=== PATIENT | female | born 1990 | race Two or more races ===

== ENCOUNTER 2024-08-03 11:19 | Emergency (ER) | payer BC, OTHER ==
[~2024-08-03] VITALS: Ht 157.5 cm; Wt 59.5 kg
[2024-08-03 11:48] LABS: Urine Bacteria None Seen /hpf (None Seen)
[2024-08-03 12:09] LABS: Urine Blood 2+ /uL (Negative); Urine Clarity Clear (Clear); Urine Color Yellow (Yellow); Urine Mucus FEW (None Seen); Urine Protein, UAD Negative (Negative); Urine Specific Gravity 1.026 (1.001-1.035); Urine Squamous Epithelial Cell FEW /hpf (<5); Urine Urobilinogen Normal (Negative); Urine WBC 4 /HPF (0-5); Urine pH 5.5 (5.0-9.0)
--- NOTE | 2024-08-03 12:09 | ED.PDOC ---
History of Present Illness HPI Comments 33 y/o F, with a Hx of UTI's, , laparoscopy, and polysubstance use, presents with significant other for c/o pelvic and LLQ and RUQ abdominal pain, today. Patient endorses on having symptoms for the past 4 days following initial, unprovoked and gradual onset. She reports recent UTI history 1x week ag o and finishing antibiotic course but still endorses on having urine frequency, currently, as well. Patient admits to no recent sick contact, travel, spoiled food intake, or injuries in addition to tobacco cigarette, occasional alcohol, and marijuana use. She refutes being , currently. Patient denies any nausea, vomiting, diarrhea, constipation, dysuria, hematuria, fever, chills, or other associated symptoms or modifiers at this time. Chief Complaint: Abdominal Pain Time Seen by MD: 11:40 Primary Care Provider: QUENTIN Reviewed Notes: Nurses Notes, Medications, Allergies Allergies: Coded Allergies: NO KNOWN ALLERGIES (Unverified , 08/03/24) Home Meds Active Scripts Hydrocodone-Acetaminophen (Hydrocodone Bitartrate/AC 5-325 mg) 1 Tab Tab, 1 TAB PO Q8HP PRN for 7 Days, #21 TAB Prov:KAYLAN HIGUERA MD 08/03/24 Information Source: Patient, Significant Other Mode of Arrival: Ambulatory Severity: Moderate Timing: Days Duration: Since onset Prehospital treatment: None Past Medical History PAST MEDICAL HISTORY: UTI'S Surgical History: Surgical History (Other): laparoscopy 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 Family History Family History: Unknown Social History Smoker: Cigarettes Alcohol: Occasionally Drugs: Marijuana Lives In: Home Physical Exam General Appearance: Moderate Distress HEENT: Normal ENT Inspection, Pharynx Normal, TMs Normal Neck: Full Range of Motion, Non-Tender, Normal, Normal Inspection Respiratory: Chest Non-Tender, Lungs Clear, No Accessory Muscle Use, No Respiratory Distress, Normal Breath Sounds Cardiovascular: No Edema, No JVD, No Murmur, No Gallop, Normal Peripheral Pulses, Regular Rate/Rhythm Breast Exam: Deferred Gastrointestinal: No Organomegaly, No Pulsatile Mass, Normal Bowel Sounds, Soft, Suprapubic, Tenderness Genitalia: Deferred Pelvic: Deferred Rectal: Deferred Extremities: No calf tenderness, Normal capillary refill, Normal inspection, Normal range of motion, Non-tender, No pedal edema Musculoskeletal : Apperance: Normal Neurologic: Alert, digital imaging specialist II-XII nml as Tested, No Motor Deficits, Normal Affect, Normal Mood, No Sensory Deficits Cerebellar Function: Normal Reflexes: Normal Skin: Dry, Normal Color, Warm Lymphatic: No Adenopathy Was a procedure done? Was a procedure done?: No Differential Dx Considerations may include: UTI, PID, diverticulitis, appendicitis, nephrolithiasis, , endometriosis, ovarian cysts, ovarian torsion, cannabinoid hyperemesis syndrome, among others X-Ray, Labs, Meds, VS Vital Signs Date Time Temp Pulse Resp B/P (MAP) Pulse Ox O2 Delivery O2 Flow Rate FiO2 08/03/24 15:00 66 19 163/66 08/03/24 11:32 98.4 82 16 120/78 (92) 95 98.4 Lab Test 08/03/24 12:07 08/03/24 11:37 Range/Units White Blood Count 6.7 4.4-10.8 10^3/uL Red Blood Count 4.51 4.0-5.20 10^6/uL Hemoglobin 13.3 12.2-16.2 g/dL Hematocrit 39.9 36.0-46.0 % Mean Corpuscular Volume 88.5 80.0-100.0 fL Mean Corpuscular Hemoglobin 29.4 28.0-32.0 pg Mean Corpuscular Hemoglobin Concent 33.2 32.0-36.0 g/dL Red Cell Distribution Width 14.3 11.8-14.3 % Platelet Count 250 140-450 10^3/uL Mean Platelet Volume 8.1 6.9-10.8 fL Neutrophils (%) (Auto) 64.0 37.0-80.0 % Lymphocytes (%) (Auto) 25.7 10.0-50.0 % Monocytes (%) (Auto) 9.4 0.0-12.0 % Eosinophils (%) (Auto) 0.4 0.0-7.0 % Basophils (%) (Auto) 0.5 0.0-2.0 % Neutrophils # (Auto) 4.3 1.6-8.6 10 ^3/uL Lymphocytes # (Auto) 1.7 0.4-5.4 10 ^3/uL Monocytes # (Auto) 0.6 0-1.3 10 ^3/uL Eosinophils # (Auto) 0 0-0.8 10 ^3/uL Basophils # (Auto) 0 0-0.2 10 ^3/uL Nucleated Red Blood Cells 0.0 % Sodium Level 139 136-145 mmol/L Potassium Level 4.3 3.5-5.1 mmol/L Chloride Level 107 98-107 mmol/L Carbon Dioxide Level 25 20-31 mmol/L Anion Gap 7 5-15 Blood Urea Nitrogen 18 9-23 mg/dL Creatinine 0.83 0.550-1.02 mg/dL Glomerular Filtration Rate Calc 95 >90 mL/min BUN/Creatinine Ratio 21.7 H 10.0-20.0 Serum Glucose 86 74-106 mg/dL Calcium Level 10.1 8.7-10.4 mg/dL Total Bilirubin 0.8 0.2-1.0 mg/dL Aspartate Amino Transferase (AST) 8 L 13-40 U/L Alanine Aminotransferase (ALT) 13 7-40 U/L Alkaline Phosphatase 62 46-116 U/L Total Protein 7.9 5.7-8.2 g/dL Albumin 5.3 H 3.2-4.8 g/dL Urine Color Yellow Yellow Urine Clarity Clear Clear Urine pH 5.5 5.0-9.0 Urine Specific [place] 1.026 1.001-1.035 Urine Protein Negative Negative Urine Ketones Negative Negative Urine Blood 2+ H Negative /uL Urine Nitrite Negative Negative Urine Bilirubin Negative Negative Urine Urobilinogen Normal Negative mg/dL Urine Leukocyte Esterase Negative Negative /uL Urine RBC 14 0 - 4 /hpf Urine Microscopic WBC 4 0-5 /HPF Urine Squamous Epithelial Cells Few <5 /hpf Urine Bacteria None seen None Seen /hpf Urine Mucus Few None Seen Urine Glucose Normal Normal mg/dL Urine Test Negative Negative Current Medications Medications (Trade) Dose Ordered Sig/Abraham Route Start Time Stop Time Status Last Admin Ondansetron HCl (Zofran) 4 mg ONCE ONCE IV 08/03/24 11:45 08/03/24 11:46 DC 08/03/24 15:00 Morphine Sulfate 4 mg ONCE ONCE IV 08/03/24 11:45 08/03/24 11:46 DC 08/03/24 15:00 Sodium Chloride 500 ml @ 500 mls/hr Q1H ONCE IVB 08/03/24 11:45 08/03/24 12:44 DC 08/03/24 15:00 Ultrasound of the pelvis shows: Impression: Cluster of cystic nonvascular structure within the body of the uterus which may represent myometrial cysts with other etiologies not excluded. 1.8 cm left ovarian cyst with echogenic wall and peripheral vascularity which may represent a corpus luteal cyst. Recommend correlation with beta HCG to exclude an ectopic . The patient was given morphine 4 mg IV push for the pain The patient was given Zofran 4 mg IV push for the nausea The patient was bolused with normal saline at 500 cc The urine test is negative for any infection The patient's CBC is within normal limits At this time the patient was being discharged on [place] The patient was told about her ultrasound and given a copy for ultrasound The patient understands and agrees with the management. Images Reviewed?: Images reviewed and evaluated by me Time of 1ST Reevaluation: 12:10 Reevaluation 1ST: Unchanged Patient Education/Counseling: Diagnosis, Treatment, Prognosis, Need For Follow Up Family Education/Counseling: Diagnosis, Treatment, Prognosis, Need For Follow Up Departure 1 Departure Time of Disposition: 15:57 Impression: Primary Impression: Pelvic pain Disposition: 01 HOME / SELF CARE / HOMELESS Condition: Fair e-Prescriptions Hydrocodone-Acetaminophen (Hydrocodone Bitartrate/AC 5-325 mg) 1 Tab Tab 1 TAB PO Q8HP PRN for 7 Days, #21 TAB Prov: KAYLAN HIGUERA MD 08/03/24 Discharged With: Self Critical Care Note Critical Care Time?: No Stability Stability form required: No Heart Score Heart Score: Heart Score Response (Comments) Value History N/A 0 EKG N/A 0 Age N/A 0 Risk Factors N/A 0 Troponin N/A 0 Total 0 I personally scribed for KAYLAN HIGUERA MD ([email or web address]) on 08/03/24 at 12:09. Electronically submitted by Ryan Borja [email or web address]). KAYLAN HIGUERA MD Aug 03, 2024 12:09
[2024-08-03 12:16] LABS: Basophils # (auto) 0 10 ^3/uL (0-0.2); Basophils % (auto) 0.5 % (0.0-2.0); Eosinophils # (auto) 0 10 ^3/uL (0-0.8); Eosinophils % (auto) 0.4 % (0.0-7.0); Hematocrit 39.9 % (36.0-46.0); Hemoglobin 13.3 g/dL (12.2-16.2); Lymphocytes # (auto) 1.7 10 ^3/uL (0.4-5.4); Lymphocytes % (auto) 25.7 % (10.0-50.0); Mean Corpuscular Hemoglobin 29.4 pg (28.0-32.0); Mean Corpuscular Hgb Conc. 33.2 g/dL (32.0-36.0); Mean Corpuscular Volume 88.5 fL (80.0-100.0); Monocytes # (auto) 0.6 10 ^3/uL (0-1.3); Monocytes % (auto) 9.4 % (0.0-12.0); Neutrophils # (auto) 4.3 10 ^3/uL (1.6-8.6); Platelet Count (auto) 250 10^3/uL (140-450); Red Blood Cells 4.51 10^6/uL (4.0-5.20); Red Cell Distribution Width 14.3 % (11.8-14.3); White Blood Cell 6.7 10^3/uL (4.4-10.8)
[2024-08-03 12:30] LABS: Alanine Aminotransferase 13 U/L (7-40); Alkaline Phosphatase 62 U/L (46-116); Anion Gap 7 (5-15); BUN/Creatinine Ratio 21.7 (10.0-20.0); Blood Urea Nitrogen 18 mg/dL (9-23); Calcium 10.1 mg/dL (8.7-10.4); Carbon Dioxide 25 mmol/L (20-31); Chloride 107 mmol/L (98-107); Glucose 86 mg/dL (74-106); Potassium 4.3 mmol/L (3.5-5.1); Sodium 139 mmol/L (136-145); Total Protein 7.9 g/dL (5.7-8.2)
[2024-08-03 12:31] LABS: Bilirubin, Total 0.8 mg/dL (0.2-1.0)
[2024-08-03 12:34] LABS: Albumin 5.3 g/dL (3.2-4.8); Aspartate Aminotransferase 8 U/L (13-40)
--- NOTE | 2024-08-03 14:08 | DVH ---
Procedure: US PELVIC Study Date and Requested Time: 08/03/2024 01:10 PM Study Description: US PELVIC History: pain Comparison: None Technique: Multiple transabdominal and transvaginal high resolution jackson-scale images obtained of the uterus and adnexa with color Doppler for evaluation of adnexal blood flow and vascularity as indicat ed. Findings: Uterus measures 8.5 x 4 x 3 cm, with cluster of anechoic nonvascular structures seen in the body the uterus, largest cyst measuring up to 0.8 cm. Endometrium within normal limits, measuring 0.6 cm in t hickness with smooth contour. Cervix within normal limits. Right ovary measures 3.3 x 2.8 x 2.4 cm. Left ovary measures 3.6 x 3 x 3.3 cm with a 1.8 cm anechoic lesion with peripheral vascularity. Normal ovarian color Doppler flow bilaterally. No evidence of free fluid in the cul-de-sac. Impression: Cluster of cystic nonvascular structure within the body of the uterus which may represent myometrial cysts with other etiologies not excluded. 1.8 cm left ovarian cyst with echogenic wall and peripheral vascularity which may represent a corpus luteal cyst. Recommend correlation with beta HCG to exclude an ectopic .
[2024-08-03] MEDS: MORPHINE SULFATE 4 MG/ML SYR/VIAL IV ONE (15:00)
[2024-08-03] MEDS: ONDANSETRON HCL 4 MG/2 ML VIAL IV ONE (15:00)
[2024-08-03] MEDS: SODIUM CHLORIDE 0.9% 500 ML IVB ONE (15:00)
[2024-08-03] MEDS ORDERED: HYDR-4902 PO (15:58)
[2024-08-03 16:23] VITALS: BP 140/78; PULSE 70; RESP 17; TEMP 98; O2SAT 99
== END 2024-08-03 16:20 | disposition home or self-care (01) ==
LOC: ER 11:19
DX: R10.2 Pelvic and perineal pain (principal); R10.32 Left lower quadrant pain; R10.11 Right upper quadrant pain; F17.210 Nicotine dependence, cigarettes, uncomplicated; F12.90 Cannabis use, unspecified, uncomplicated; Z98.890 Other specified postprocedural states; Z79.899 Other long term (current) drug therapy
CPT/HCPCS: 36415; 76830; 76856; 80053; 81001; 81025; 85025; 96361; 96374; 96375; 99285; J2270; J2405; J7040